=== PATIENT | female | born 1980 | race Caucasian/White ===

== ENCOUNTER → 2017-03-17 | Outpatient (CLI) | payer OTHER ==
--- NOTE | 2017-03-17 13:52 | Diagnostic Imaging Report ---
PROCEDURE: US Gallbladder. TECHNIQUE: Multiple real-time grayscale images were obtained over the right upper quadrant in various projections. INDICATION: Right upper quadrant pain. FINDINGS: The pancreas is largely obscured by bowel gas. The liver is hyperechoic and borderline enlarged measuring 19 cm in diagonal craniocaudal dimension. The liver parenchyma demonstrates no focal lesion or intrahepatic biliary dilatation. The CBD is 4 mm in caliber. The portal vein demonstrates hepatopetal flow. The gallbladder demonstrates no stones or wall thickening. No pericholecystic fluid. Sonographic Lees's sign is reportedly negative. No fluid collection in the upper right abdomen is seen. The right kidney is 10.3 cm in length with no hydronephrosis or focal lesion. IMPRESSION: Borderline enlarged liver with increased parenchymal echogenicity. This may relate to hepatitis or fatty infiltration. Dictated by: Dictated on workstation # [id number]
== END ==
LOC: RAD 08:39
PROVIDERS: ATTEND Family Medicine
DX: R10.11 Right upper quadrant pain (principal); R16.0 Hepatomegaly, not elsewhere classified
CPT/HCPCS: 76705

== ENCOUNTER → 2017-03-28 | Outpatient (CLI) | payer OTHER ==
[~2017-03-28] MED LIST: CATHETER FLUSH 10 ML SYR IV PRN
--- NOTE | 2017-03-28 17:37 | Diagnostic Imaging Report ---
INDICATION: Abdominal pain. TECHNIQUE: After intravenous administration of 5.3 mCi technetium 99m Choletec, scintigraphic images of the abdomen are obtained. FINDINGS: Initial images reveal diffuse uptake throughout the liver with prompt appearance of activity in the biliary tree and gallbladder. Activity passes into the small bowel. Patient ingested fatty meal with gallbladder ejection fraction calculated to be 57%. Values greater than 50% are considered normal. IMPRESSION: Normal hepatobiliary scan with normal gallbladder ejection fraction of 57%. Dictated by: Dictated on workstation # [id number]
== END ==
LOC: CARD 12:46
PROVIDERS: ATTEND Family Medicine
DX: R10.11 Right upper quadrant pain (principal)
CPT/HCPCS: 78227

== ENCOUNTER → 2017-04-08 | Outpatient (CLI) | payer OTHER ==
--- NOTE | 2017-04-08 19:44 | Diagnostic Imaging Report ---
Bilateral diagnostic mammogram. INDICATION: Palpable lump in the left breast upper aspect. The current study was also evaluated with a Computer Aided Detection (CAD) system. Comparison exam from 07/07/2005 is reviewed. FINDINGS: Breasts are composed of slightly dense parenchyma which may decrease mammographic sensitivity. There is a focal asymmetry in the central slightly inferior aspect of the left breast posteriorly. This is evaluated with focal compression views and demonstrate no definite underlying lesion, favored to be summation artifact of parenchyma. The right breast demonstrates no suspicious lesion. IMPRESSION: Focal asymmetry in the inferior posterior aspect of the left breast is likely summation artifact of parenchyma. Ultrasound evaluation pending. ACR BI-RADS Category 0: Incomplete. (Needs additional imaging evaluation). Result letter will be mailed to the patient. Note: At least 10% of breast cancer is not imaged by mammography. Dictated by: Dictated on workstation # [id number]
--- NOTE | 2017-04-08 20:25 | Diagnostic Imaging Report ---
EXAMINATION: Left breast ultrasound. INDICATION: Palpable nodule in the left breast and focal asymmetry in the inferior aspect. FINDINGS: The palpable area is scanned at 12 o'clock zone with no underlying abnormality. The rest of the breast four quadrants and retroareolar region are evaluated with no underlying abnormality seen. IMPRESSION: Negative study. Clinical followup of the palpable area is recommended. Also a six-months left breast mammogram to ensure stability or resolution of the focal asymmetry is recommended. ACR BI-RADS Category 2: Benign findings. Dictated by: Dictated on workstation # [id number]
== END ==
LOC: RAD 08:00
PROVIDERS: ATTEND Family Medicine
DX: N63 Unspecified lump in breast (principal)
CPT/HCPCS: 76641; 77066

== ENCOUNTER 2017-04-16 19:43 | Outpatient (CLI) | payer OTHER | END 2017-04-17 06:20 | disposition home or self-care (01) | LOC: SLEEP 19:43 | PROVIDERS: ATTEND Family Medicine | DX: G47.33 Obstructive sleep apnea (adult) (pediatric) (principal) | CPT/HCPCS: 95811 ==

== ENCOUNTER → 2017-04-21 | Outpatient (CLI) | payer OTHER ==
[~2017-04-21] MED LIST changes: +BUSP5TAB59 PO; -CATHETER FLUSH 10 ML SYR IV PRN; +FEXO180T84 PO; +HYDR-3812 PO; +LEVO5TAB28 PO; +PANT40TA3 PO
== END ==
LOC: PREOP 05:50
PROVIDERS: ATTEND Surgery
DX: Z01.818 Encounter for other preprocedural examination (principal); K21.9 Gastro-esophageal reflux disease without esophagitis

== ENCOUNTER 2017-04-25 07:58 | Day surgery (SDC) | payer OTHER ==
[~2017-04-25] VITALS: Ht 162.6 cm; Wt 113.4 kg
[2017-04-25] MEDS ORDERED: NS IV 500 ML 500 ML IV PRN (08:17)
[2017-04-25] MEDS ORDERED: BUSP5TAB59 PO (08:26)
[2017-04-25] MEDS ORDERED: FEXO180T84 PO (08:26)
[2017-04-25] MEDS ORDERED: PANT40TA3 PO (08:26)
[2017-04-25 08:28] VITALS: BP 149/95
[2017-04-25] MEDS ORDERED: HURRICAINE EXT TUBE (BENZOCAINE) XX PRN (08:30)
--- NOTE | 2017-04-25 08:34 | History & Physicial ---
History of Present Illness History of Present Illness Reason for visit/HPI to undergo an upper endoscopy regarding symptoms of gastroesophageal reflux Date of Admission Date Seen by Provider: Apr 25, 2017 Time Seen by Provider: 08:33 I consulted on this patient on 04/25/17 08:32 Attending Physician Jackson Chang MD Admitting Physician Xenia Holder DO Consult Allergies and Home Medications Allergies Coded Allergies: No Known Drug Allergies (Unverified , 04/25/17) Home Medications Buspirone HCl 5 Mg Tablet, 5 MG PO DAILY, (Reported) Fexofenadine HCl 180 Mg Tablet, 180 MG PO DAILY, (Reported) Pantoprazole Sodium 40 Mg Tablet.dr, 40 MG PO DAILY, (Reported) Past Rcihqzt-Gslyyn-Xyhhyj Hx Patient Social History Employed/Student: employed Recent Foreign Travel: No Contact w/other who traveled: No Respiratory Hx Respiratory Disorders: No Cardiovascular Hx Cardiovascular Disorders: No Neurological Hx Neurological Disorders: No Reproductive System : No Genitourinary Hx Genitourinary Disorders: No Gastrointestinal Hx Gastrointestinal Disorders: Yes Gastrointestinal Disorders: Gastroesophageal Reflux Musculoskeletal Hx Musculoskeletal Disorders: No Constitutional: no symptoms reported EENTM: no symptoms reported Respiratory: no symptoms reported Cardiovascular: no symptoms reported Gastrointestinal: heartburn Genitourinary: no symptoms reported Musculoskeletal: no symptoms reported Skin: no symptoms reported Psychiatric/Neurological: No Symptoms Reported Physical Exam Vital Signs Capillary Refill : General Appearance: No Apparent Distress HEENT: Normal ENT Inspection Neck: Normal Inspection Respiratory: Lungs Clear Cardiovascular: Regular Rate, Rhythm Gastrointestinal: Non Tender, Soft Extremity: Normal Inspection Neurologic/Psychiatric: Alert, Oriented x3 Skin: Normal Color, Warm/Dry Assessment/Plan Assessment and Plan lady with symptoms of gastroesophageal reflux. For upper endoscopy. Problems: JACKSON CHANG MD Apr 25, 2017 8:34 am
--- NOTE | 2017-04-25 08:35 | Conscious Sedation/ASA ---
Conscious Sedation Pre-Proced Time Reviewed: 08:35 ASA Class: 2 Airway Mallampati Classification: ([place] appropriate class) I. II. III, IV Lungs Heart ASA score ASA 1: a normal healthy patient ASA 2: a patient with a mild systemic disease (mid diabetes, controlled hypertension, obesity ASA 3: a patient with a severe systemic disease that limits activity (angina , COPD, prior Myocardial infarction) ASA 4: a patient with an incapacitating disease that is a constant threat to life (CHF, renal failure) ASA 5: a moribund patient not expected to survive 24 hrs. (ruptured aneurysm) ASA 6: a declared brain patient whose organs are being harvested. For emergent operations, add the letter E after the classification Grade 2 Sedation Plan: Discussed options with patient/fam Note The patient is an appropriate candidate to undergo the planned procedure, sedation, and anesthesia. The patient immediately re-assessed prior to indication. JACKSON GRIMALDO MD Apr 25, 2017 8:35 am
[2017-04-25] MEDS ORDERED: HURRICAINE EXT TUBE (BENZOCAINE) ONE (08:55)
[2017-04-25] MEDS ORDERED: fentaNYL INJECTION 100 MCG/2 ML AMP ONE (08:55)
[2017-04-25] MEDS ORDERED: MIDAZOLAM 2 MG/2 ML (VERSED) VIAL ONE ×3 (08:55)
[2017-04-25] MEDS: fentaNYL INJECTION 100 MCG/2 ML AMP IVP PRN ×2 (08:58→09:02)
[2017-04-25] MEDS: MIDAZOLAM 2 MG/2 ML (VERSED) VIAL IVP PRN ×2 (09:00→09:04)
--- NOTE | 2017-04-25 09:21 | Endo Procedure Record ---
Endo Procedure Report Date of Procedure Apr 25, 2017 Surgeon (s) JACKSON GRIMALDO MD Post Procedure/Op Diagnosis grade 2 esophagitis. Gastric erosions Procedure Performed EGD with antral biopsy Description of Procedure Anesthesia Type: Conscious Sedation Specimen(s) collected/removed antral mucosa Description of the Procedure INDICATION FOR PROCEDURE: This lady came in for an endoscopic assessment of symptoms of reflux disease.. Informed consent was obtained after reviewing the procedure in detail. ESCRIPTION OF THE PROCEDURE: She was placed in left lateral decubitus position and her vital signs were monitored. Conscious sedation was achieved using Versed and fentanyl. Her oropharynx was anesthetized Cetacaine and the flexible gastroscope introduced down the esophagus, past the stomach, into the proximal duodenum. fINDINGS: 1. GRADE 2 ESOPHAGITIS WITH A SHORT HIATAL HERNIA 2. MULTIPLE DISTAL GASTRIC EROSIONS. DUODENUM WAS NORMAL. AN ANTRAL BIOPSY WAS OBTAINED FOR hELICOBACTER STATUS. SHE TOLERATED THE PROCEDURE WELL AND WAS TAKEN BACK TO THE NURSING AREA IN A STABLE CONDITION IMPRESSION: sYMPTOMS OF REFLUX DISEASE. gRADE 2 ESOPHAGITIS. gASTRIC EROSIONS. hELICOBACTER STATUS PENDING.. Copies To: HERON SR XAVIER M MD Apr 25, 2017 9:21 am
--- NOTE | 2017-04-25 09:22 | Discharge Inst-Simple/Standard ---
Discharge Inst-Standard Discharge Medications New, Converted or Re-Newed RX: Other Patient Instructions/Follow Up Plan of Care/Instructions/FU: INCREASE pROTONIX TO TWICE A DAY. fOLLOW-UP WITH dR. Grimm Activity as Tolerated: Yes Discharge Diet: No Restrictions JACKSON GRIMALDO MD Apr 25, 2017 9:22 am
[2017-04-25 09:40] VITALS: BP 133/88
[2017-04-25 10:10] VITALS: BP 140/92
[2017-04-25 10:40] VITALS: BP 130/92
[2017-04-25 10:50] VITALS: BP 130/92
== END 2017-04-25 10:50 | disposition home or self-care (01) ==
LOC: ENDO 07:58
PROVIDERS: ATTEND Surgery
DX: K20.9 Esophagitis, unspecified (principal); K44.9 Diaphragmatic hernia without obstruction or gangrene; K25.9 Gastric ulcer, unspecified as acute or chronic, without hemorrhage or perforation

== ENCOUNTER 2017-08-01 05:36 | Outpatient (CLI) | payer OTHER ==
[~2017-08-01] VITALS: Ht 162.6 cm; Wt 113.4 kg
[~2017-08-01 05:36] MED LIST changes: -HYDR-3812 PO; -LEVO5TAB28 PO
[2017-08-01] MEDS ORDERED: LEVO5TAB28 PO (09:50)
== END 2017-08-01 09:59 ==
LOC: PREOP 05:36
PROVIDERS: ATTEND Surgery
DX: Z01.818 Encounter for other preprocedural examination (principal); K82.8 Other specified diseases of gallbladder

== ENCOUNTER → 2019-11-06 | Outpatient (CLI) | payer BC, OTHER ==
[~2019-11-06] MED LIST changes: +ACHD5005 PO; +LEVO5TAB28 PO
--- NOTE | 2019-11-06 16:04 | Diagnostic Imaging Report ---
INDICATION: Routine screening. COMPARISON: Comparison is made with prior mammogram from 04/08/2017. 2-D and 3-D bilateral screening mammography was performed. The current study was also evaluated with a Computer Aided Detection (CAD) system. 3-D tomosynthesis was also performed and reviewed. FINDINGS: Both breasts are heterogeneously dense, limiting the sensitivity of mammography. Circumscribed density in the inferior retroareolar left breast appears stable. No spiculated mass or malignant-appearing microcalcifications are seen. Axillae are unremarkable. IMPRESSION: No mammographic features suspicious for malignancy are identified. ACR BI-RADS Category 2: Benign findings. Result letter will be mailed to the patient. Note: At least 10% of breast cancer is not imaged by mammography. Dictated by: Dictated on workstation # [id number]
--- NOTE | 2019-11-06 16:15 | Diagnostic Imaging Report ---
INDICATION: R06.00 DYSPNEA COMPARISON: None FINDINGS: Frontal and lateral views of the chest demonstrate normal heart size and pulmonary vascularity. The lungs are clear. There are no signs of infiltrate, pleural effusions or pneumothoraces. The visualized osseous structures show no acute abnormalities. IMPRESSION: 1. No acute process. No signs of infiltrates, effusions or pneumothoraces. Dictated by: Dictated on workstation # [id number]
== END ==
LOC: RAD 14:22
PROVIDERS: ATTEND Family Medicine
DX: Z12.31 Encounter for screening mammogram for malignant neoplasm of breast (principal); R06.00 Dyspnea, unspecified
CPT/HCPCS: 71046; 77067

== ENCOUNTER → 2021-02-27 | Outpatient (CLI) | payer BC ==
[~2021-02-27] MED LIST changes: -PANT40TA3 PO; +PANT40TA52 PO
== END ==
LOC: CARD 12:00
PROVIDERS: ATTEND Family Medicine
DX: I49.9 Cardiac arrhythmia, unspecified (principal)
CPT/HCPCS: 93005

== ENCOUNTER → 2021-03-04 | Outpatient (CLI) | payer BC | LOC: CARD 13:40 | PROVIDERS: ATTEND Family Medicine | DX: I49.9 Cardiac arrhythmia, unspecified (principal) | CPT/HCPCS: 93225; 93226 ==